=== PATIENT | female | born 2000 | race Caucasian/White ===

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

== ENCOUNTER 2022-04-12 18:16 | Emergency (ER) | payer OTHER, SELFPAY ==
--- NOTE | 2022-04-12 18:29 | PC.NURSE ---
patient left prior to being triaged
== END 2022-04-12 18:28 | disposition left against medical advice (07) ==
PROVIDERS: PCP Pediatrics
DX: Z53.21 Procedure and treatment not carried out due to patient leaving prior to being seen by health care provider (principal)
CPT/HCPCS: 99199

== ENCOUNTER 2023-11-22 12:50 | Outpatient (CLI) | payer OTHER, SELFPAY ==
--- NOTE | ~2023-11-22 | MR_ITS ---
EXAMINATION: MR IAC wo/w con DATE: 11/22/2023 13:43 INDICATION: Asymmetrical hearing loss. TECHNIQUE: Magnetic resonance imaging (MRI) of the brain, brainstem, and internal auditory canals was performed without and with 13 mL MultiHance intravenous contrast. COMPARISON: None. FINDINGS: There is no intracranial hemorrhage, acute infarction, or abnormal intracranial mass lesion . The ventricles are normal in size. The paranasal sinuses are clear. The orbits are normal. The mast oid air cells are normal. The internal auditory canals, inner ears, and tympanic cavities are normal. IMPRESSION: 1. Normal brain. Reviewed, dictated and finalized at location A. IMPRESSION: 1. Normal brain.
== END 2023-11-22 12:51 ==
LOC: MICIMG 12:54
PROVIDERS: PCP Otolaryngology; Visit Provider Otolaryngology
DX: H90.3 Sensorineural hearing loss, bilateral (principal)
CPT/HCPCS: 70553; A9577

== ENCOUNTER 2024-02-01 12:58 | Emergency (ER) | payer OTHER, SELFPAY ==
[2024-02-01 12:59] VITALS: BP 142/92; PULSE 99; RESP 16; TEMP 36.5; O2SAT 99
--- NOTE | 2024-02-01 13:13 | ED.GIBLEED ---
HPI - GI Bleed General Chief complaint: GI Bleed Stated complaint: bloody stools Time Seen by Provider: 02/01/24 13:00 History of Present Illness HPI Narrative: Pt presents with several episodes of bright red blood mixed n with normal stool for the last couple of days. Pt has some intermittent lower abdominal pain but no pain now. Pt denies constipation or diarrhea or fever. Pt has no FH of colorectal cancer or any PMHx of Crohn's or UC or IBS. Pt [facility] and told if it persists to come to ER. No rectal exam performed. Related Data Home Medications Medication Instructions Recorded Confirmed norgestimate-ethinyl estradiol 1 tablet PO DAILY 04/10/20 04/19/20 0.18 mg/0.215mg/0.25mg-35 mcg(28)tablet (Tri-Sprintec (28)) Allergies Allergy/AdvReac Type Severity Reaction Status Date / Time No Known Allergies Allergy Verified 02/01/24 13:28 Review of Systems Review of Systems: All systems reviewed & are unremarkable except as noted in HPI and below PMFSH Past Medical History Medical History (Updated 02/01/24 @ 13:28 by Gemini Madison III, DO) Asthma Social History Social History Smoking status: Never smoker Living arrangements: alone Spiritual care concerns: No Exam Const: General: healthy appearing, no acute distress and alert Nutritional Appearance: well nourished Orientation/consciousness: patient oriented x3 Resp: Effort & Inspection: normal respiratory effort Auscultation: clear to auscultation bilaterally Cardio: Rate: regular rate Rhythm: regular rhythm GI: GI Palp: Yes Soft to palpation and No Tenderness to palpation present (GI) Auscultation: normal bowel sounds Rectal Exam: normal sphincter tone and hemorrhoids (small external hemmorhoid, heme neg stool) Back/Spine/Pelvis: Back: no CVA tenderness Skin: General skin exam: normal color Rashes: no rashes Wounds: no wounds Neuro: General: patient oriented x3, moves all extremities, no meningeal signs, no focal motor deficits and CN's II-XI intact bilaterally Cranial nerves: Yes Nystagmus not present Speech: normal speech Extrem: General: normal to inspection and no clubbing, cyanosis or edema Psych: Mental Status: mental status grossly normal Affect: normal affect Attitude: cooperative Course Vital Signs Vital signs: Vital Signs Temperature 97.7 F 02/01/24 12:59 Pulse Rate 99 02/01/24 12:59 Respiratory Rate 16 02/01/24 12:59 Blood Pressure 142/92 H 02/01/24 12:59 Pulse Oximetry 99 02/01/24 12:59 Oxygen Delivery Room Air 02/01/24 12:59 Temperature 97.7 F 02/01/24 12:59 Pulse Rate 99 02/01/24 12:59 Respiratory Rate 16 02/01/24 12:59 Blood Pressure 142/92 H 02/01/24 12:59 Pulse Oximetry 99 02/01/24 12:59 Oxygen Delivery Room Air 02/01/24 12:59 Discharge Plan Discharge Clinical Impression: Hemorrhoids Patient Disposition: Home, Self-Care Condition: Stable Instructions: Antibiotic Form, Hemorrhoids (ED) Additional Instructions: may try sitz baths, of increased beeding fever or increased abdominal pain or persistent beeding return. Prescriptions: New hydrocortisone acetate [Anucort-HC] 25 mg suppository 25 mg RECTAL DAILY Qty: 12 0RF No Action norgestimate-ethinyl estradiol [Tri-Sprintec (28)] 0.18/0.215/0.25 mg-35 mcg (28) tablet 1 tablet PO DAILY hydrocodone-acetaminophen [[place]] 5-325 mg tablet 1 tablet PO Q4H PRN (Reason: pain) Qty: 30 0RF Follow-up/Referrals: Thai,MD Chuy [Primary Care Provider] -
[2024-02-01 14:12] VITALS: BP 121/88; PULSE 99; RESP 17; TEMP 36.6; O2SAT 100
== END 2024-02-01 14:13 | disposition home or self-care (01) ==
LOC: ANHED 13:34
PROVIDERS: Emergency Provider Emergency Medicine; PCP Otolaryngology
DX: K64.9 Unspecified hemorrhoids (principal); J45.909 Unspecified asthma, uncomplicated
CPT/HCPCS: 99283